=== PATIENT | male | born 1980 | race Caucasian/White ===

== ENCOUNTER 2019-04-21 15:20 | Emergency (ER) | payer BC, OTHER ==
[2019-04-21] MEDS ORDERED: HYDROmorphone 2 MG/ML Syringe ONE (15:25)
[2019-04-21] MEDS ORDERED: HYDROmorphone 1 MG/ML Syringe IVPUSH ONE ×2 (15:32→15:51)
--- NOTE | 2019-04-21 15:33 | EDM.PDOC ---
ED HPI GENERAL MEDICAL PROBLEM - General Chief Complaint: Trauma Stated Complaint: crush injury on fimer Time Seen by Provider: 04/21/19 15:32 Source of Information: Reports: Patient - History of Present Illness INITIAL COMMENTS - FREE TEXT/NARRATIVE: HISTORY AND PHYSICAL: History of present illness: [Patient was at work today, he was fillling a "sand pot "apparently this hold 600 pounds of sand there is a large leave her on this trap the whole thing came down leave her lying across his right femur he complains of right femur pain obvious deformity no fever nausea vomiting chills sweats no other injury per patient, he arrives via private vehicle Review of systems: As per history of present illness and below otherwise all systems reviewed and negative. Past medical history: As per history of present illness and as reviewed below otherwise noncontributory. Surgical history: As per history of present illness and as reviewed below otherwise noncontributory. Social history: No reported history of drug or alcohol abuse. Family history: As per history of present illness and as reviewed below otherwise noncontributory. Physical exam: HEENT: Atraumatic, normocephalic, pupils reactive, negative for conjunctival pallor or scleral icterus, mucous membranes moist, throat clear, neck supple, nontender, trachea midline. Lungs: Clear to auscultation, breath sounds equal bilaterally, chest nontender. Heart: S1S2, regular, negative for clicks, rubs, or JVD. Abdomen: Soft, nondistended, nontender. Negative for masses or hepatosplenomegaly. Negative for costovertebral tenderness. Pelvis: Stable nontender. Genitourinary: Deferred. Rectal: Deferred. Extremities: Atraumatic, negative for cords or calf pain. Neurovascular unremarkable. Obvious deformity of the right femur no pallor or paresthesia Neuro: Awake, alert, oriented. Cranial nerves II through XII unremarkable. Cerebellum unremarkable. Motor and sensory unremarkable throughout. Exam nonfocal. Diagnostics: femur 1 view ]cBC CMP troponin CPK Therapeutics: [] normal saline Dilaudid 2 mg IV Traction splint Transfer via ground Impression: [Right femur fracture, closed Crush injury ] Definitive disposition and diagnosis as appropriate pending reevaluation and review of above. - Related Data Allergies Allergy/AdvReac Type Severity Reaction Status Date / Time No Known Allergies Allergy Verified 05/31/15 16:39 Home Meds: Home Meds . [No Known Home Meds] 05/31/15 [History] Past Medical History - Past Health History Medical/Surgical History: Denies Medical/Surgical History Review of Systems - Review of Systems Review Of Systems: See Below ED EXAM, GENERAL - Physical Exam Exam: See Below Course - Orders/Labs/Meds Orders: Active Orders 24 hr Category Date Time Status Femur Min 1V Rt [CR] Stat Exams 04/21/19 15:32 Taken COMPREHENSIVE METABOLIC PN,CMP [CHEM] Stat Lab 04/21/19 15:24 Received CPK [CREATINE KINASE,CK] [CHEM] Stat Lab 04/21/19 15:24 Received TROPONIN I [CHEM] Stat Lab 04/21/19 15:24 Received Sodium Chloride 0.9% [Normal Saline] 1,000 ml Med 04/21/19 15:45 Active IV STAT Medication Orders Sodium Chloride (Normal Saline) 1,000 mls @ 125 mls/hr IV STAT SHARLENE Last Admin: 04/21/19 15:40 Dose: 125 mls/hr Labs: Laboratory Tests 04/21/19 Range/Units 15:24 WBC 7.56 (4.0-11.0) K/uL RBC 4.77 (4.50-5.90) M/uL Hgb 14.7 (13.0-17.0) g/dL Hct 45.5 (38.0-50.0) % MCV 95.4 (80.0-98.0) fL MCH 30.8 (27.0-32.0) pg MCHC 32.3 (31.0-37.0) g/dL RDW Std Deviation 50.4 (28.0-62.0) fl RDW Coeff of Carie 14 (11.0-15.0) % Plt Count 233 (150-400) K/uL MPV 12.20 H (7.40-12.00) fL Neut % (Auto) 47.1 L (48.0-80.0) % Lymph % (Auto) 39.8 (16.0-40.0) % [place] % (Auto) 7.9 (0.0-15.0) % Eos % (Auto) 4.8 (0.0-7.0) % Baso % (Auto) 0.4 (0.0-1.5) % Neut # (Auto) 3.6 (1.4-5.7) K/uL Lymph # (Auto) 3.0 H (0.6-2.4) K/uL [place] # (Auto) 0.6 (0.0-0.8) K/uL Eos # (Auto) 0.4 (0.0-0.7) K/uL Baso # (Auto) 0.0 (0.0-0.1) K/uL Nucleated RBC % 0.0 /100WBC Nucleated RBCs # 0 K/uL Meds: Medications Generic Name Dose Route Start Last Admin Trade Name Freq PRN Reason Stop Dose Admin Sodium Chloride 1,000 mls @ 125 mls/hr 04/21/19 15:45 04/21/19 15:40 Normal Saline IV 125 mls/hr STAT SHARLENE Administration Discontinued Medications Generic Name Dose Route Start Last Admin Trade Name Freq PRN Reason Stop Dose Admin Hydromorphone HCl Confirm 04/21/19 15:25 04/21/19 15:40 Dilaudid Administered 04/21/19 15:26 2 mg Dose Administration 2 mg .ROUTE .STK-MED ONE Hydromorphone HCl 2 mg 04/21/19 15:32 04/21/19 15:41 Dilaudid IVPUSH 04/21/19 15:33 Not Given ONETIME ONE Departure - Departure Time of Disposition: 15:49 Disposition: DC/Tfer to Acute Hospital 02 Condition: Good Clinical Impression: Femur fracture - Discharge Information Referrals: PCP,Unknown [Primary Care Provider] - Forms: ED Department Discharge - My Orders Last 24 Hours: My Active Orders 04/21/19 15:24 COMPREHENSIVE METABOLIC PN,CMP [CHEM] Stat CPK [CREATINE KINASE,CK] [CHEM] Stat TROPONIN I [CHEM] Stat 04/21/19 15:32 Femur Min 1V Rt [CR] Stat 04/21/19 15:45 Sodium Chloride 0.9% [Normal Saline] 1,000 ml IV STAT - Assessment/Plan Last 24 Hours: My Active Orders 04/21/19 15:24 COMPREHENSIVE METABOLIC PN,CMP [CHEM] Stat CPK [CREATINE KINASE,CK] [CHEM] Stat TROPONIN I [CHEM] Stat 04/21/19 15:32 Femur Min 1V Rt [CR] Stat 04/21/19 15:45 Sodium Chloride 0.9% [Normal Saline] 1,000 ml IV STAT
[2019-04-21] MEDS ORDERED: Sodium Chloride 0.9% 1,000 ML IV SCH (15:45)
[2019-04-21 16:02] LABS: CHLORIDE,CL 105 mmol/L (98-107); SODIUM,NA 143 mmol/L (136-148)
[2019-04-21 16:06] VITALS: BP 138/97
--- NOTE | 2019-04-21 16:45 | CR ---
Indication: Injury and pain Technique: Right femur 2 views Comparison: None Findings/Impression: Bones: Complete transverse mildly displaced fracture is in the distal shaft of the right femur. No other osseous abnormality. Joint spaces: Unremarkable. Soft tissues: Edema is adjacent to the fracture. Dictated by Scooter Davidson MD @ Apr 21 2019 4:41PM Signed by Dr. Scooter Davidson @ Apr 21 2019 4:43PM
== END 2019-04-21 17:20 ==
LOC: MW.ED 15:20
DX: S72.401A Unspecified fracture of lower end of right femur, initial encounter for closed fracture (principal); W20.8XXA Other cause of strike by thrown, projected or falling object, initial encounter; Y99.0 Civilian activity done for income or pay
CPT/HCPCS: 36415; 73551; 80053; 82550; 84484; 85025; 96361; 96374; 96376; 99285; J1170; J7040; 99284